=== PATIENT | female | born 1980 | race Caucasian/White ===

== ENCOUNTER 2017-06-16 17:23 | Emergency (ER) | payer OTHER ==
[~2017-06-16] VITALS: Ht 160 cm; Wt 62.3 kg
[2017-06-16 17:29] VITALS: TEMP 36.6; Ht 160 cm; Wt 62.3 kg
[2017-06-16] MEDS ORDERED: CLIN1CAP51 PO (17:48)
[2017-06-16] MEDS ORDERED: MoRPHine SULFATE 10 MG/ML CARP/VIAL IV STA (17:52)
[2017-06-16] MEDS ORDERED: ONDANSETRON INJ 2 MG/ML 2 ML VIAL IV STA (17:52)
[2017-06-16 18:27] LABS: BASO % 0.3 %; BASO ABS # 0.05 K/uL (0-0.2); COMPLETE YES; EOS % 0.8 %; HEMATOCRIT 41.7 % (37-47); IG% 0.3 %; LYMPH ABS # 1.84 K/uL (1.2-3.4); MEAN CELL VOLUME 83.9 fL (80-100); MEAN CORPUSCULAR HEMOGLOBIN 31.4 pg (25-34); MEAN CORPUSCULAR HGB CONC 37.4 g/dl (32-36); MEAN PLATELET VOLUME 9.1 fL (7.4-10.4); MONO % 8.3 %; NEUT % 78.3 %; PLATELET COUNT 380 K/uL (130-400); RED BLOOD COUNT 4.97 M/uL (4.2-5.4); WHITE BLOOD COUNT 15.38 K/uL (4.8-10.8)
[2017-06-16 19:00] LABS: BUN/CREATININE RATIO 21.4 (10-20); CALCIUM 9.5 mg/dl (8.5-10.1); CREATININE 1.25 mg/dl (0.60-1.20); POTASSIUM 3.1 mmol/L (3.5-5.1)
[2017-06-16 19:03] LABS: ALB/GLOB RATIO 0.8 (0.9-2)
--- NOTE | 2017-06-16 19:06 | EMERGENCY ROOM VISIT NOTE ---
History First contact with patient: 17:44 Chief Complaint: FACIAL PAIN/INJURY Stated Complaint: SWELLING ON SIDE OF JAW AND THROAT History of Present Illness The patient is a 36 year old female who presents to the Emergency Room with complaints of swelling on the left side of her lower jaw. The patient reports that 1.5 weeks ago, she noticed some pain with pressing on the lower left jaw. She states that since then, she has developed swelling in the area which has progressively worsened. She was seen at [facility] and diagnosed with a dental infection and prescribed clindamycin. She has been taking clindamycin for the past 4 days with worsening swelling. She states that she does have a "bad tooth" in that area and was told it would need to be removed by a dentist. She has not seen a dentist since the swelling started. She rates her overall discomfort a 10/10. She states that she has difficulty swallowing due to the pain. She denies any difficulty breathing. She denies any history of similar symptoms. Her vaccinations are up-to-date. Review of Systems A complete 10 point review of systems was reviewed with the patient with pertinent positives and negatives as per history of present illness. All else were negative. Social History Smoking Status: Current Every Day Smoker Current/Historical Medications Scheduled Clindamycin HCl (Clindamycin HCl), 450 MG PO TID Scheduled PRN Oxycodone Ir (Roxicodone Ir), 1-2 TAB PO Q4H PRN for Pain Physical Exam Vital Signs Date Time Temp Pulse Resp B/P (MAP) Pulse Ox O2 Delivery O2 Flow Rate FiO2 06/16/17 21:52 90 18 124/77 99 06/16/17 20:16 136/88 06/16/17 19:11 81 13 98 06/16/17 19:06 77 15 97 06/16/17 19:01 128/93 06/16/17 18:53 83 19 97 06/16/17 18:31 129/88 06/16/17 18:20 92 20 129/83 98 Room Air 06/16/17 17:29 36.6 106 20 141/99 99 Room Air Physical Exam VITALS: Vitals are noted on the nurse's note and reviewed by myself. Vital signs stable. GENERAL: This is a 36-year-old female, in no acute distress, nondiaphoretic, well-developed well-nourished. EARS: External auditory canals clear, tympanic membranes pearly gibson without erythema or effusion bilaterally. EYES: Pupils equal round and reactive to light and accommodation. MOUTH: Mucous membranes moist. Positive trismus. There is a significant amount of edema to the left lower jaw which extends below the left chin. This is significantly tender to palpation. NECK: Supple without nuchal rigidity. No lymphadenopathy. HEART: Regular rate and rhythm without murmurs gallops or rubs. LUNGS: Clear to auscultation bilaterally without wheezes, rales or rhonchi. NEURO: Patient was alert and oriented to person place and time. Medical Decision & Procedures ER Provider Diagnostic Interpretation: SOFT TISSUE NECK WITH HISTORY: 36 years-old Female left lower jaw swelling acute left mandibular and neck soft tissue swelling COMPARISON: None available TECHNIQUE: Multiple axial CT images of the soft tissues of the neck were obtained following the intravenous administration of 93 mL Optiray 320. A dose lowering technique was used consistent with the principals of ALARA. FINDINGS: The imaged intracranial structures demonstrate no acute abnormality. The nasopharynx, oropharynx and hypopharynx are widely patent. The vallecula and piriform sinuses are maintained. The epiglottis and aryepiglottic folds are unremarkable. The glottis and subglottic airway are unremarkable. Thyroid is homogeneous. Bilateral parotid glands are unremarkable. There is a large peripherally enhancing likely multiloculated collection within the left hardware sales assistant space surrounding the left mandible which measures up to 4.6 x 3.6 x 4.3 cm in AP, transverse and craniocaudal dimensions. Moderate associated subcutaneous edema and skin thickening also noted within this distribution compatible with cellulitis. Soft tissue edema tracks along the left platysma musculature. Likely reactive left level 1 lymph nodes are seen measuring up to 8 mm in short axis. Collection causes mild displacement of the adjacent left submandibular gland which is otherwise unremarkable. Complete that Lung apices are clear. Mastoid air cells are clear. Minimal mucosal thickening of the ethmoid air cells. Multifocal periodontal disease with large caries noted involving the left mandibular second molar with small periapical cyst and adjacent mild cortical erosion of the mandible. This likely accounts for the large soft tissue abscess. IMPRESSION: Large likely multiloculated soft tissue abscess of the left hardware sales assistant and submandibular space measuring up to 4.6 x 3.6 x 4.3 cm with associated reactive level 1 adenopathy and left jaw cellulitis. Abscess is centered about a large dental jade and small apical lucency of the left second mandibular molar. Multifocal additional periodontal disease also noted. Laboratory Results 06/16/17 18:06 Red Blood Count 4.97, Mean Corpuscular Volume 83.9, Mean Corpuscular Hemoglobin 31.4, Mean Corpuscular Hemoglobin Concent 37.4, Mean Platelet Volume 9.1, Neutrophils (%) (Auto) 78.3, Lymphocytes (%) (Auto) 12.0, Monocytes (%) (Auto) 8.3, Eosinophils (%) (Auto) 0.8, Basophils (%) (Auto) 0.3, Neutrophils # (Auto) 12.05, Lymphocytes # (Auto) 1.84, Monocytes # (Auto) 1.28, Eosinophils # (Auto) 0.12, Basophils # (Auto) 0.05 06/16/17 18:06 Test 06/16/17 18:06 White Blood Count 15.38 K/uL (4.8-10.8) Red Blood Count 4.97 M/uL (4.2-5.4) Hemoglobin 15.6 g/dL (12.0-16.0) Hematocrit 41.7 % (37-47) Mean Corpuscular Volume 83.9 fL (80-100) Mean Corpuscular Hemoglobin 31.4 pg (25-34) Mean Corpuscular Hemoglobin Concent 37.4 g/dl (32-36) Platelet Count 380 K/uL (130-400) Mean Platelet Volume 9.1 fL (7.4-10.4) Neutrophils (%) (Auto) 78.3 % Lymphocytes (%) (Auto) 12.0 % Monocytes (%) (Auto) 8.3 % Eosinophils (%) (Auto) 0.8 % Basophils (%) (Auto) 0.3 % Neutrophils # (Auto) 12.05 K/uL (1.4-6.5) Lymphocytes # (Auto) 1.84 K/uL (1.2-3.4) Monocytes # (Auto) 1.28 K/uL (0.11-0.59) Eosinophils # (Auto) 0.12 K/uL (0-0.5) Basophils # (Auto) 0.05 K/uL (0-0.2) RDW Standard Deviation 39.9 fL (36.4-46.3) RDW Coefficient of Variation 13.2 % (11.5-14.5) Immature Granulocyte % (Auto) 0.3 % Immature Granulocyte # (Auto) 0.04 K/uL (0.00-0.02) Anion Gap 15.0 mmol/L (3-11) Est Creatinine Clear Calc Drug Dose 52.4 ml/min Estimated GFR () 65.0 Estimated GFR (Non- 56.1 BUN/Creatinine Ratio 21.4 (10-20) Calcium Level 9.5 mg/dl (8.5-10.1) Total Bilirubin 0.3 mg/dl (0.2-1) Aspartate Amino Transf (AST/SGOT) 12 U/L (15-37) Alanine Aminotransferase (ALT/SGPT) 25 U/L (12-78) Alkaline Phosphatase 167 U/L (45-117) Total Protein 8.5 gm/dl (6.4-8.2) Albumin 3.8 gm/dl (3.4-5.0) Globulin 4.7 gm/dl (2.5-4.0) Albumin/Globulin Ratio 0.8 (0.9-2) Medications Administered Medications (Trade) Dose Ordered Sig/Suresh Route Start Time Stop Time Status Last Admin Dose Admin Morphine Sulfate (MoRPHine SULFATE INJ) 6 mg NOW STAT IV 06/16/17 17:52 06/16/17 17:55 DC 06/16/17 18:11 6 MG Ondansetron HCl (Zofran Inj) 4 mg NOW STAT IV 06/16/17 17:52 06/16/17 17:55 DC 06/16/17 18:09 4 MG Sodium Chloride 1,000 ml @ 999 mls/hr Q1H1M STAT IV 06/16/17 19:07 06/16/17 20:07 DC 06/16/17 19:12 999 MLS/HR Dexamethasone Sodium Phosphate (Decadron Inj) 10 mg NOW STAT IV 06/16/17 20:33 06/16/17 20:35 DC 06/16/17 20:48 10 MG Clindamycin Phosphate 900 mg/ Dextrose 106 ml @ 100 mls/hr ONE ONCE IV 06/16/17 20:45 06/16/17 21:48 DC 06/16/17 20:48 100 MLS/HR Morphine Sulfate (MoRPHine SULFATE INJ) 4 mg NOW STAT IV 06/16/17 20:33 06/16/17 20:35 DC 06/16/17 20:48 4 MG Oxycodone HCl (Roxicodone Immediate Rel 5MG Home Pack) 1 homepack UD ONCE PO 06/16/17 21:15 06/16/17 21:16 DC 06/16/17 21:27 1 HOMEPACK ED Course The patient was evaluated as above. Labs were drawn and IV access was obtained. Patient was medicated with 6 mg morphine for pain and [address] of the neck was performed and read by radiology as above. Case was discussed with Dr. Bautista of oral surgery. We discussed patient presentation, lab findings and imaging results. He feels that the patient will need incision and drainage and will perform this Monday morning. He feels that the patient is safe to be discharged home as long as she is tolerating fluids by mouth and has no respiratory difficulty. Patient was reevaluated and findings were discussed. The patient prefers to be discharged home. She was given a dose of Decadron, IV clindamycin and an additional dose of morphine. Discharge instructions were reviewed with the patient. The patient verbalized understanding of my assessment and treatment plan and was discharged home in good condition. Medical Decision Differential diagnosis includes facial cellulitis, dental abscess, Josh angina , among others. The patient is a 36-year-old female who presents today complaining of left- sided facial swelling and pain. Labs revealed and leukocytosis of 15,000. Patient is afebrile. CT of the soft tissue neck was performed and read by radiology. This does show a multiloculated abscess which appears to be dental in nature. The case was discussed with Dr. Bautista, the oral surgeon electronic plotting system operator. He feels that this will need incision and drainage and can perform this on Monday. He does not feel that the patient requires admission unless she desires this for pain control. I did offer the patient admission to the medical service for symptomatic treatment, however she much prefers to be discharged home and I do feel this is reasonable as she does not have any respiratory symptoms or airway compromise on CT scan. There is no evidence of Josh angina. Patient was treated symptomatically in the emergency department. She understands that she is able to return here at any time if her symptoms worsen. I did encourage her specifically to return if she has difficulty breathing, difficulty swallowing, fevers or worsening swelling. She will continue the clindamycin and was given a prescription for pain medication. She will call Dr. Bautista's office first thing Monday morning and will follow- up in the office that day for incision and drainage as well as extraction of the tooth. The patient was independently evaluated by Dr. Mae, ED attending physician, who agreed with my assessment and treatment plan. Based on the patient's presentation and work up, I feel the patient is stable for outpatient treatment. The patient was educated to return to the emergency department for any worsening of their current condition or new/concerning symptoms. She will follow up with Dr. Bautista. Medication Reconcilliation Current Medication List: was personally reviewed by me Blood Pressure Screening Patient's blood pressure: Normal blood pressure Impression Primary Impression: Periapical abscess with facial involvement Departure Information Dispostion Home / Self-Care Condition GOOD Prescriptions Oxycodone Ir (Roxicodone Ir) 5 Mg Tab 1-2 TAB PO Q4H Y for Pain, #20 TAB For Initial Treatment Prov: Norma Kelly .HARESH 06/16/17 Referrals No Doctor, Assigned (PCP) Eamon Bautista D.M.D. Patient Instructions My [facility] Additional Instructions You have been treated in the Emergency Department for a dental infection/facial abscess. You have received pain medicine in the emergency department which impairs your ability to operate a vehicle. It is illegal for you to drive after receiving these medicines. You have been prescribed OxyIR to be used for pain control. This is a narcotic medication. You cannot drive or consume alcohol while on this medicine. This medicine should only be used for pain that cannot be controlled with over-the- counter pain medicines. You were prescribed clindamycin to be taken 2 tablets 4 times daily. This is an antibiotic. All antibiotics have the potential to cause diarrhea. Stop this medication and contact a medical provider if you were to develop any significant adverse side effects including: wheezing, shortness of breath, passing out, vomiting, or a diffuse rash. Always take antibiotics as directed and COMPLETE the ENTIRE course regardless of the improvement of your symptoms. For pain control, you can also use the following [id number] medicines (if >12 yo): - Regular strength (325mg/tab) Tylenol (acetaminophen) 2 tabs every 4-6 hours as needed. Do not exceed 12 tablets in a 24 hour period. Avoid taking more than 4 grams (4000 mg) of Tylenol per day. This includes any other sources of acetaminophen you may take on a regular basis. - Regular strength (200 mg/tab) Advil (ibuprofen) 1-2 tabs every 4-6 hours as needed. Do not exceed a dose of 3200 mg per day. Refrain from smoking cigarettes or using chewing tobacco until you have been evaluated by your dentist. Keeping beverages lukewarm and consuming soft foods can decrease your pain. Warm compresses over the affected area may offer some relief. Dr. Bautista will see you to drain the abscess and remove the tooth Monday. Call their office first thing Monday to see when they would like you to come in. Do not have anything to eat or drink after midnight Monday night. Make sure you bring a assembly line driver with you to the appointment on Monday. Return to the emergency department if you develop the following symptoms despite treatment course outlined above: fever, increasing swelling, difficulty breathing, difficulty swallowing, or any other new/concerning symptoms or worsening of your current condition.
[2017-06-16] MEDS ORDERED: SODIUM CHLORIDE 0.9% 1000ML 1,000 ML IV STA (19:07)
--- NOTE | 2017-06-16 20:06 | DIAGNOSTIC IMAGING REPORT ---
SOFT TISSUE NECK WITH HISTORY: 36 years-old Female left lower jaw swelling acute left mandibular and neck soft tissue swelling COMPARISON: None available TECHNIQUE: Multiple axial CT images of the soft tissues of the neck were obtained following the intravenous administration of 93 mL Optiray 320. A dose lowering technique was used consistent with the principals of GARO. FINDINGS: The imaged intracranial structures demonstrate no acute abnormality. The nasopharynx, oropharynx and hypopharynx are widely patent. The vallecula and piriform sinuses are maintained. The epiglottis and aryepiglottic folds are unremarkable. The glottis and subglottic airway are unremarkable. Thyroid is homogeneous. Bilateral parotid glands are unremarkable. There is a large peripherally enhancing likely multiloculated collection within the left dry mill worker space surrounding the left mandible which measures up to 4.6 x 3.6 x 4.3 cm in AP, transverse and craniocaudal dimensions. Moderate associated subcutaneous edema and skin thickening also noted within this distribution compatible with cellulitis. Soft tissue edema tracks along the left platysma musculature. Likely reactive left level 1 lymph nodes are seen measuring up to 8 mm in short axis. Collection causes mild displacement of the adjacent left submandibular gland which is otherwise unremarkable. Complete that Lung apices are clear. Mastoid air cells are clear. Minimal mucosal thickening of the ethmoid air cells. Multifocal periodontal disease with large caries noted involving the left mandibular second molar with small periapical cyst and adjacent mild cortical erosion of the mandible. This likely accounts for the large soft tissue abscess. IMPRESSION: Large likely multiloculated soft tissue abscess of the left dry mill worker and submandibular space measuring up to 4.6 x 3.6 x 4.3 cm with associated reactive level 1 adenopathy and left jaw cellulitis. Abscess is centered about a large dental jade and small apical lucency of the left second mandibular molar. Multifocal additional periodontal disease also noted. The above report was generated using voice recognition software. It may contain grammatical, syntax or spelling errors. Electronically signed by: Marky Jackson M.D. 06/16/2017 8:05 PM Dictated Date/Time: 06/16/2017 7:54 PM
[2017-06-16] MEDS ORDERED: DEXAMETHASONE SOD INJ 4 MG/ML VIAL IV STA (20:33)
[2017-06-16] MEDS ORDERED: MoRPHine SULFATE 4 MG/ML 1 ML CARP\\VIAL IV STA (20:33)
--- NOTE | 2017-06-16 20:35 | EMERGENCY ROOM VISIT NOTE ---
ED Visit Note First contact with patient: 17:44 I have personally evaluated this patient examined her and reviewed the pertinent labs and data. I have discussed the case with Norma Kelly, the physician licensed investment sales assistant and agree with the plan. Please refer to the PA note. This patient comes in after having toothache and facial swelling. This has been going off about a week and a half . She's been on Clinda for about 4 days . On exam, she has significant swelling on that side however she has no shortness of breath or difficulty handling her secretions. she has trismus but there is no evidence to suggest Josh's angina. She is penicillin allergic. CAT scan shows a couple did abscess. I do think she will need to be admitted for IV antibiotics and surgical drainage. We will consult Dr. Bautista.
[2017-06-16] MEDS ORDERED: CLINDAMYCIN IV 900 MG in DEXTROSE 5% ADD-VANTAGE 100ML 100 ML IV ONE (20:45)
[2017-06-16] MEDS ORDERED: OXYC1TAB3 PO (21:12)
[2017-06-16] MEDS ORDERED: OXYCODONE IR HOME PACK PO ONE (21:15)
[2017-06-16 21:52] VITALS: BP 124/77; PULSE 90; O2SAT 99
== END 2017-06-16 21:53 | disposition home or self-care (01) ==
LOC: C.EDB 17:25 → C.EDC 21:53
DX: K04.7 Periapical abscess without sinus (principal); F17.200 Nicotine dependence, unspecified, uncomplicated

== ENCOUNTER → 2017-06-19 | Outpatient (CLI) | payer OTHER ==
[~2017-06-19] MED LIST: CLIN1CAP51 PO; OXYC1TAB3 PO
== END | disposition home or self-care (01) ==
LOC: C.LABSPEC 14:17
PROVIDERS: ATTEND Dentist Oral and Maxillofacial Surgery
DX: L02.01 Cutaneous abscess of face (principal)